=== PATIENT | female | born 1935 | race Caucasian/White ===

== ENCOUNTER → 2016-04-01 | Outpatient (CLI) | payer MEDICARE, BC ==
[~2016-04-01] MED LIST: AUGMENTIN 875-1 EACH PO; B12 INJ.,1000 MCG/M IM; CEFTRIAXONE 1 GM1 GM IV; CENTRUM SILVER1 EAC2 PO; DULCOLAX 5MG TAB5 MG PO; KEFLEX 500MG.500 MG PO; LISINOPRIL 20MG20 MG PO; LORTAB 5/500 501 TAB PO; METOPROLOL25 MG PO; NORVASC 10MG. T10 MG PO; PRILOSEC20 M1 PO; TAB-A-VITE1 TA1 PO; TYLENOL WITH CO1 TA1 PO; ZITHROMAX Z-PA250 M2 PO
--- NOTE | 2016-04-01 12:53 | RADIOLOGY REPORT PS360 ---
HIP RT 2-3V W/PELVIS IF PERFOR HISTORY: Follow-up fracture STATUS POST HIP SURGERY ORDERING PHYSICIAN: Mikael Giraldo MD PATIENT AGE: 80 years COMPARISON: 01/28/2016 FINDINGS: Status post right hip pinning for femoral neck fracture with minimal impaction of fracture fragments in good alignment. Fracture line appears somewhat less apparent. IMPRESSION: Healing right femoral neck fracture status post ORIF
== END ==
LOC: EDSTATUS 09:06 → RAD 10:33
DX: Z96.89 Presence of other specified functional implants (principal)

== ENCOUNTER 2016-04-08 11:30 | Inpatient (IN) | payer MEDICARE, BC ==
[~2016-04-08] VITALS: Ht 157.5 cm; Wt 49.1 kg
[~2016-04-08 11:30] MED LIST changes: -CEFTRIAXONE 1 GM1 GM IV; -ZITHROMAX Z-PA250 M2 PO
[2016-04-08 11:31] VITALS: BP 88/51
--- NOTE | 2016-04-08 11:52 | Emergency Room Report ---
History of Present Illness Time Seen by MD Gray Presenting Problem in Triage Pt arrived:Wheelchair Presenting Problem:PATIENT STATES THAT SHE FELL IN THE BATHROOM Onset of symptoms date/time:/ or onset unknown for:MEDICAL HX UNKNOWN Treatment Prior to Arrival: COFOUNDER Provided by: Sepsis Risk Assessment: Temp: 98.1 B/P: 88/51 MAP: 63 Pulse: 83 Resp: 18 Recent fever? N Clinical Suspician of Infection? N Mental Status: 1 - Regular (Normal Baseline) Sepsis Risk:Low Sepsis Risk Have you (or family members/close friends) recently traveled outside the [place]? N If Yes, where/when: Have you had exposure to infectious disease within the past month? N TB? Other? Specify: Source patient, RN notes reviewed, family Exam Limitations no limitations Comment This is an 80-year-old female with a past medical history significant for hypertension, UTI, CVA with residual left-sided weakness who presents to the emergency department for a fall this morning and subsequent LEFT hip pain. She has had ORIF of the LEFT hip in 2008 in the RIGHT hip in 2016. She states that she was coming out of the bathroom this morning when she fell. She reports that her LEFT leg is always weak and that's why she fell. She denies any associated dizziness, chest pain, shortness of air. No recent fevers. She had one episode of vomiting today after the fall. She denies any abdominal pain, dysuria. She feels like she has been in her baseline health. She does not have a headache and denies any blood thinners. She fell onto her LEFT hip. ALLERGIES Coded Allergies: No Known Allergies (11/13/15) Home Medications Active Scripts Bisacodyl (Dulcolax 5MG Tab) 5 MG PO DAILY PRN CONSTIPATION #30 TAB Ref 2 Prov: 10/01/14 ACETAMINOPHEN WITH CODEINE (Tylenol With Codeine #3 Tablet) 1 TAB PO Q6HP PRN BREAKTHROUGH MODERATE PAIN #30 TAB Prov: 11/15/15 Reported Medications LISINOPRIL (Lisinopril) 20 MG PO DAILY Folic Acid/Multivit-Min/Lutein (Centrum Silver Chewable Tablet) 1 EACH PO DAILY AMLODIPINE BESYLATE (Norvasc) 10 MG PO DAILY Metoprolol Tartrate (Metoprolol) 25 MG PO DAILY Vitamin B12 (Cyanocobalamin Injection) 1,000 MCG IM MONTHLY History Medical History General CAD? No Angina: No [place]: No Hypertension? Yes Hyperlipidemia? No CHF? No DVT? No PE? No COPD? No Asthma? No Anemia? No GERD? No Gastric ulcers? No GI Bleed? No Hernia? No Thyroid Problems? No Hypothyroidism? No CVA? Yes Seizures? No Diabetes? No Renal Insuffiency? No End Stage Renal Disease? No UTI? Yes Stones? No BPH? No GB Disease: No Nephritic Syndrome? No Asplenia? No Hepatitis? No Sickle Cell Disease? No Arthritis? Yes Migraines? No Cataracts? No Glaucoma? No MRSA? No HIV? No TB? No Anxiety? No Depression? No Cancer? No More? No Immunization Hx Ped.Immunizations UTD Yes DT/Tetanus < 1 Year Ago Flu [id number] Flu Season Pneumonia Received In Past Surgical Hx Previous Surgery?Y HYSTERECTOMY RECTAL POLYPS BRAIN LEFT HIP REPAIR Family History Family Hx Diabetes Yes CAD Yes Hypertension Yes Hyperlipidemia No Cancer Yes TB No Social History Smoking Hx Smoker: Never Smoker Tobacco: No Packs/day N/A Are you/the child exposed to second-hand smoke: Yes Alcohol Alcohol: No Review of Systems All Other Systems Reviewed and Negative Physical Exam Vital Signs Vital Signs Date Time Temp Pulse Resp B/P Pulse O2 O2 Flow FiO2 Ox Delivery Rate 04/08 1336 98.1 68 20 124/56 95 04/08 1258 68 20 113/60 95 2 04/08 1153 89 04/08 1131 98.1 83 18 88/51 90 General Appearance normal appearance, chronically ill-appearing Ear, Nose, Throat hearing grossly normal, normal pharynx, dry mucous membranes Neck normal inspection, non-tender, supple, full range of motion Respiratory Status Yes: chest symmetrical, non tender chest. No: respiratory distress. Lung Sounds bilateral: normal breath sounds, lungs clear. Cardiovascular normal exam, regular rate/rhythm, no peripheral edema, no gallop, no JVD, no murmur, no rub, normal peripheral pulses Peripheral Pulses Pulses normal Yes Gastrointestinal normal bowel sounds, normal exam, non tender Back normal inspection, no CVA tenderness, no vertebral tenderness Extremities nontender except tenderness over the lateral aspect of the LEFT hip near the greater trochanter. There is no bruising or deformity. Equal leg length. Sensation is intact distally in the LEFT lower extremity with 2+ DP and PT pulses. Neurologic alert, no motor/sensory deficits, oriented x 3 Skin intact, normal color, warm/dry, poor skin turgor Medical Decision Making LABS/Meds/Orders Pt receiving controlled substance in ED? No Results/Orders Laboratory Tests 04/08/16 1251: Urine Color YELLOW, Urine Appearance SL CLOUDY, Urine pH 5.5, Ur Specific [place] >= 1.030, Urine Protein NEGATIVE, Urine Ketones TRACE H, Urine Blood NEGATIVE, Urine Nitrate NEGATIVE, Urine Bilirubin NEGATIVE, Urine Urobilinogen 0.2, Ur Leukocyte Esterase NEGATIVE, Urine WBC OCC, Ur Squamous Epith Cells OCC, Urine Bacteria 1+, Urine Mucus 4+, Urine Glucose NEGATIVE 04/08/16 1245: Lactic Acid 2.0 04/08/16 1140: Sodium 143, Potassium 4.2, Chloride 106, Carbon Dioxide 25, BUN 25 H, Creatinine 0.9, Estimated Creat Clear 42 L, Estimated GFR (MDRD) 60, Glucose 149 H, Calcium 9.0, Total Bilirubin 0.5, AST 17, ALT 30, Alkaline Phosphatase 145 H, Total Protein 7.6, Albumin 3.5, Globulin 4.1 H, Albumin/Globulin Ratio 0.9 L, WBC 20.5 *H, RBC 4.67, Hgb 13.3, Hct 41.2, MCV 88.2, RDW 14.4, Plt Count 260, MPV 8.9, Gran % 91.4 H, Gran # 18.7 H, Total Counted 100, Lymphocytes % 5.1 L, Monocytes % 3.3, Eosinophils % 0.1, Basophils % 0.2, Neutrophils 91 H, Lymphocytes (Manual) 4 L, Lymphocytes # 1.0, Monocytes (Manual) 5, Monocytes # 0.7, Eosinophils # 0.0, Basophils # 0.0, Platelet Estimate NORMAL, PUBS MCHC 31.9, MCH 28.1 Current Medication Orders Sig/Javon Start time Last Medication Dose Route Stop Time Status Admin Ceftriaxone Sodium 0 .STK-MED ONE 04/08 1300 DC IV Sodium Chloride 50 ML .STK-MED ONE 04/08 1259 DC IV Ceftriaxone Sodium 1 GM ONCE ONE 04/08 1215 DC 04/08 Sodium Chloride 50 ML IV 04/08 1244 1302 Sodium Chloride 10 ML PRN PRN 04/08 1145 AC IV 04/09 1144 Sodium Chloride 1,000 ML .Q1H1M 04/08 1145 DC 04/08 IV 04/08 1245 1147 Sodium Chloride 10 ML PRN PRN 04/08 1145 AC IV 04/09 1144 Sodium Chloride 1,000 ML .STK-MED ONE 04/08 1145 DC IV Orders Procedure Date/time Status DIET-NOTHING BY MOUTH 04/08 D Active Decision to admit 04/08 1333 Active URINARY CATHETER INSERT 04/08 1257 Active CULTURE, BLOOD 04/[address] HEAD REQ 04/08 1153 Complete OXYGEN PER NURSE 04/08 1152 Active URINALYSIS/COMPLETE 04/08 1147 Complete LACTIC ACID 04/08 1147 Complete CBC WITH AUTO DIFF 04/08 1147 Complete CHEM 12 PROFILE 04/08 1147 Complete IV SALINE LOCK 04/08 1144 Active DIFFERENTIAL-WBC 04/08 1140 Complete XRAY/CT/US XRAY/CT/US XRAY chest, hip, pelvis, x-ray of the pelvis and LEFT hip reveals no acute fracture or dislocation. Chest x-ray shows on the LEFT is difficult to interpret given positioning of the heart. There is no focal consolidation. CT head CT interpretation by reviewed by me, discussed w/radiologist (no acute intracranial process) Departure Departure Disposition Still a Patient Clinical Impression Primary Impression: Community acquired pneumonia Secondary Impressions: Fall Qualifiers: Encounter type: initial encounter Qualified Code: W19.XXXA - Unspecified fall, initial encounter Condition STABLE Referrals Dylan Persaud (Family) ED Critical Care Critical Care No Comments Patient with fall onto the LEFT hip which sounds mechanical according to the patient. Her x-rays of the pelvis and hip do not reveal any acute fracture scan of the head is benign as well. She does have a white blood cell count 20,000, no urinary tract infection. Though initially patient claimed to be in her baseline health, she later tells me on reevaluation that she has chronic sinus drainage and cough but states that she has been this way for nearly a year. She denies any chest pain. Her oxygen saturations are 91-92 percent on room air and I wonder for fall this morning might have been related to not only her LEFT leg weakness which is baseline, but also to an episode of hypoxia. I will treat her for presumed community-acquired pneumonia with Rocephin and admission to the hospital. Low suspicion at this time for meningitis/LOSS PREVENTION GUARD infection. Blood cultures are sent. I discussed his case with Dr. Montes. at [phone]
[2016-04-08 12:07] LABS: LYMPH % 5.1 % (10-50.0)
[2016-04-08 12:10] LABS: HEMOGLOBIN 13.3 g/dL (12.2-16.2)
[2016-04-08 12:30] LABS: NEUTROPHILS 91 % (42-76)
--- NOTE | 2016-04-08 12:49 | RADIOLOGY REPORT PS360 ---
CT HEAD W/O CONTRAST HISTORY: Headache following injury PT FELL ORDERING PHYSICIAN: Rafa Huffman MD PATIENT AGE: 80 years COMPARISON: 07/11/2010 TECHNIQUE: Axial images obtained without contrast. Brain and bone windows reviewed. FINDINGS: No midline shift, mass effect, intracranial hemorrhage, hydrocephalus, or extra-axial fluid collection is evident. Post craniotomy changes are present in the left suboccipital region with encephalomalacic change of the left cerebellum. Periventricular and subcortical ischemic gliotic changes are noted. No acute intracranial hemorrhage. IMPRESSION: 1. No change with no acute finding. 2. Prior left suboccipital craniotomy with encephalomalacic change.
[2016-04-08 12:59] LABS: URINE BILIRUBIN - DIPSTICK NEGATIVE (NEG); URINE BLOOD NEGATIVE (NEG)
[2016-04-08 13:09] LABS: URINE SQUAMOUS CELLS OCC #/hpf (0-5)
--- NOTE | 2016-04-08 13:13 | RADIOLOGY REPORT PS360 ---
CHEST-AP VIEW ONLY HISTORY: hypotension ORDERING PHYSICIAN: Rafa Huffman MD PATIENT AGE: 80 years COMPARISON: 11/12/2015 FINDINGS: Mild cardiomegaly without failure. Chronic blunting of the left CP angle adjacent to the heart. Chronic changes right midlung. No lobar consolidation or collapse. No acute bony anomalies. IMPRESSION: No change from 11/12/2015 with no acute finding
--- NOTE | 2016-04-08 13:14 | RADIOLOGY REPORT PS360 ---
HIP LT 2-3V W/PELVIS IF PERFOR HISTORY: Pain following injury FALL ORDERING PHYSICIAN: Rafa Huffman MD PATIENT AGE: 80 years COMPARISON: 04/01/2016 FINDINGS: Status post right hip pain with stable her neck fracture in good alignment. Gamma now with long intramedullary juanjo present on the left with old intertrochanteric fracture. Old fracture line is noted along the lesser trochanter and is chronic. No acute fracture or dislocation is evident. IMPRESSION: Prior ORIF both hips with no acute finding
[2016-04-08 14:30] VITALS: BP 135/80
[2016-04-08 14:37] VITALS: BP 135/80
[2016-04-08 16:02] VITALS: BP 138/87
--- NOTE | 2016-04-08 16:02 | HISTORY AND PHYSICAL REPORT ---
Demographics: Admit date: 04/08/16 Chief complaint: Fall, weakness PRIMARY DIAGNOSIS: PNEUMONIA Allergies: Coded Allergies: No Known Allergies (11/13/15) History of present illness: History of present illness: 80 year old female with a history of CVA with residual left sided weakness, recurrent falls with ORIF to bilateral hips and HTN presented to the ED after a fall at home. She reports increase in weakness over the last week. Denies dizziness prior to the fall. Grandson reports chronic sinusitis with mild dry cough this weak. No fevers. She further reports left hand and left leg discomfort since fall. In the ED, she was found to have leukocytosis with WBC 20.5. CXR with no acute pathology, although this may be related to some dehydration. UA revealed cloudy urine with + ketones. CT head and left hip films were negative for acute pathology. Patient admitted to acute care for IV antibiotics and further evaluation. Past medical history: Family HX Diabetes Yes CAD Yes Hypertension Yes Hyperlipidemia No Cancer Yes TB No Immunization HX Ped.Immunizations UTD Yes DT/Tetanus < 1 Year Ago Flu Refused Pneumonia Received In Past TB Test in last year No General CAD? No Angina: No [place]: No Hypertension? Yes Hyperlipidemia? No CHF? No DVT? No PE? No COPD? No Asthma? No Anemia? No GERD? No Gastric ulcers? No GI Bleed? No Hernia? No Thyroid Problems? No Hypothyroidism? No CVA? Yes Seizures? No Diabetes? No Renal Insuffiency? No UTI? Yes Stones? No BPH? No GB Disease: No Nephritic Syndrome? No Asplenia? No Hepatitis? No Sickle Cell Disease? No Arthritis? Yes Migraines? No Cataracts? No Glaucoma? No MRSA? No HIV? No TB? No Anxiety? No Depression? No Cancer? No More? No Past Surgical HX Previous Surgery?Y HYSTERECTOMY RECTAL POLYPS BRAIN LEFT HIP REPAIR Current home meds: Reported Medications LISINOPRIL (Lisinopril) 20 MG PO DAILY Folic Acid/Multivit-Min/Lutein (Centrum Silver Chewable Tablet) 1 EACH PO DAILY AMLODIPINE BESYLATE (Norvasc) 10 MG PO DAILY Metoprolol Tartrate (Metoprolol) 25 MG PO DAILY Social Hx: Smoking HX Tobacco No Packs/day N/A Are you/the child exposed to second-hand smoke: Yes Alcohol Alcohol: No Hx of Drug Use Drug Use? No Patient's support system is good Review of systems: Constitutional weakness. No: chills, malaise. Eyes No: no symptoms reported. Ears, Nose, Mouth, Throat No ear pain, nose discharge (clear), nose congestion, No throat pain Respiratory cough. No: orthopnea, shortness of breath, SOB at rest, stridor, wheezing. Cardiovascular No no symptoms reported Gastrointestinal/Abdominal No no symptoms reported Genitourinary No: no symptoms reported. Musculoskeletal see HPI. Skin No: no symptoms reported. Neurological Yes: weakness. No: headache, numbness, tingling, tremors. Psychiatric No: no symptoms reported. Exam: Lab data for last 24 hours: Laboratory Tests 04/08/16 1251: Urine Color YELLOW, Urine Appearance SL CLOUDY, Urine pH 5.5, Ur Specific [place] >= 1.030, Urine Protein NEGATIVE, Urine Ketones TRACE H, Urine Blood NEGATIVE, Urine Nitrate NEGATIVE, Urine Bilirubin NEGATIVE, Urine Urobilinogen 0.2, Ur Leukocyte Esterase NEGATIVE, Urine WBC OCC, Ur Squamous Epith Cells OCC, Urine Bacteria 1+, Urine Mucus 4+, Urine Glucose NEGATIVE 04/08/16 1245: Lactic Acid 2.0 04/08/16 1140: Sodium 143, Potassium 4.2, Chloride 106, Carbon Dioxide 25, BUN 25 H, Creatinine 0.9, Estimated Creat Clear 42 L, Estimated GFR (MDRD) 60, Glucose 149 H, Calcium 9.0, Total Bilirubin 0.5, AST 17, ALT 30, Alkaline Phosphatase 145 H, Total Protein 7.6, Albumin 3.5, Globulin 4.1 H, Albumin/Globulin Ratio 0.9 L, WBC 20.5 *H, RBC 4.67, Hgb 13.3, Hct 41.2, MCV 88.2, RDW 14.4, Plt Count 260, MPV 8.9, Gran % 91.4 H, Gran # 18.7 H, Total Counted 100, Lymphocytes % 5.1 L, Monocytes % 3.3, Eosinophils % 0.1, Basophils % 0.2, Neutrophils 91 H, Lymphocytes (Manual) 4 L, Lymphocytes # 1.0, Monocytes (Manual) 5, Monocytes # 0.7, Eosinophils # 0.0, Basophils # 0.0, Platelet Estimate NORMAL, PUBS MCHC 31.9, MCH 28.1 Microbiology 04/08 1640 RANDOM: Urine Culture - ORD 04/08 1245 BLOOD: Anaerobic Blood Culture - RECD 04/08 1245 BLOOD: Aerobic Blood Culture - RECD 04/08 1245 BLOOD: Anaerobic Blood Culture - RECD 04/08 1245 BLOOD: Aerobic Blood Culture - RECD Admission vital signs: 1ST Vital Signs Result Date Time Pulse Ox 90 04/08 1131 B/P 88/51 04/08 1131 Temp 98.1 04/08 1131 Pulse 83 04/08 1131 Resp 18 04/08 1131 O2 Flow Rate 2 04/08 1258 O2 Delivery OXYGEN 04/08 1430 Exam General appearance: cachetic Eyes: anicteric ENT: dry mucous membranes Neck: non-tender, no carotid bruit, no JVD Cardiovascular: regular rate & rhythm, normal peripheral pulses, no peripheral edema Respiratory: clear to auscultation ABD: non-distended, normal bowel sounds, no rebound, soft, no tenderness Genitourinary: no dysuria, no hematuria Extremities: left sided weakness Musculoskeletal: sensation intact Skin: intact Neuro: alert, normal mood/affect, oriented Plan: Problem List 1. Leukocytosis Assessment/Plan Continue IV antibiotics. Likely related to CAP. Will recheck CXR tomorrow afternoon. Obtain urine and sputum culture if able to produce. Blood culture pending. Will recheck labs in the am 2. Fall Assessment/Plan Will initiate PT/OT eval tomorrow 3. History of CVA (cerebrovascular accident) Assessment/Plan Residual left sided weakness. Plan: see above
[2016-04-08 16:42] LABS: CORONAVIRUS 229E NOT DETECTED (NOT DETECTE); CORONAVIRUS HKU 1 NOT DETECTED (NOT DETECTE); CORONAVIRUS NL63 NOT DETECTED (NOT DETECTE); CORONAVIRUS OC43 NOT DETECTED (NOT DETECTE); RHINOVIRUS/ENTEROVIRUS NOT DETECTED (NOT DETECTE)
[2016-04-08 19:47] VITALS: BP 120/63
[2016-04-08 19:50] VITALS: BP 120/63
[2016-04-09] VITALS (8 sets, daily range): BP systolic 109–138; BP diastolic 61–90
[2016-04-09 06:18] LABS: LYMPH # 1.3 K/mm3 (0.7-4.5); LYMPH % 11.1 % (10-50.0)
[2016-04-09 06:27] LABS: HEMOGLOBIN 10.9 g/dL (12.2-16.2)
--- NOTE | 2016-04-09 07:41 | PHARMACY CLINIC NOTE ---
Patient Demographics Patient Demographics Admission date: 04/08/16 Date: 04/09/16 Time: 0740 Allergies Coded Allergies: No Known Allergies (11/13/15) HEIGHT- FT: 5 IN: 2.00 K.130 VTE General Information Labs: Laboratory Tests 04/09 04/08 0610 1140 Hematology Hgb (12.2 - 16.2 g/dL) 10.9 L 13.3 Hct (37.0 - 47.0 %) 33.3 L 41.2 Plt Count (142 - 424 K/mm3) 194 260 Disclaimer The following section includes nursing documentation that has been pulled in for pharmacy review. Patient's VTE score: 3 Patient's VTE Risk: LOW RISK Clinical trial participant? No VTE prophylaxis [id number] [id number] VTE prophylaxis ordered? Yes Type of prophylaxis/treatment: ICD at 0741
--- NOTE | 2016-04-09 07:54 | RADIOLOGY REPORT PS360 ---
CHEST(2 VIEWS-NOT PORTABLE) HISTORY: cough ORDERING PHYSICIAN: Juan Montes MD PATIENT AGE: 80 years COMPARISON: To 117 FINDINGS: The cardiomediastinal silhouette and pulmonary vascularity are within normal limits. Bilateral atelectatic changes are present in the lower lobes and in the right midlung. These findings are somewhat worse.. Age-indeterminate wedging involves the T12 vertebral body with loss of height anteriorly of greater than 50%. Wedging also present involving T7 and T8 slightly greater at T8 with greater than 50% wedge compressive changes. There is kyphosis of the thoracic spine.. Curvilinear lucency overlies aortic arch. This is of questionable clinical significance and may be related to overlying soft tissue artifact. Follow-up suggested IMPRESSION: 1. Increasing bilateral lower lobe atelectatic change. 2. Age-indeterminate wedge compressive changes T7, T8, and T12 with kyphosis
--- NOTE | 2016-04-09 07:54 | ACUTE CARE PROGRESS NOTE (QUA) ---
Progress Notes Subjective Date 04/09/16 Time 0730 Note Patient is sitting in bed eating breakfast. She reports cough has increased, still no sputum production. Left hand and thigh are aching s/p fall yesterday at home. Overall, reports she feels better. Alert and oriented x3. Rate and rhythm regular, + murmur, pulses 1+, no edema. Scattered rhonchi left > right. Small bruise noted on 4th MCP joint, ROM intact; No bruise or deformity left thigh; abdomen soft, non-tender, normoactive bowel sounds. Patient/family reports: feeling better, weakness Nursing reports: no complaints Objective Findings Last VS-Temp:98.2 B/P:135/79 Pulse:97 Resp:16 SaO2:96 ROOM AIR Last weight lbs:108 oz:5 K.130 Method:Bed Scales Reviewed: medications, vital signs, lab results, radiology report Assessment/Plan Problem List 1. Leukocytosis Assessment/Plan: WBC 11.3, down from 20.5. Rhonchi on exam this morning, indicating most likely related to CAP. Continue zithromax and rocephin. Urine and blood cultures pending. Will obtain sputum if able to produce. PT evaluation for deconditioning and recurrent falls. 2. Fall Assessment/Plan: See above Qualifiers: Encounter type: initial encounter Qualified Code: W19.XXXA - Unspecified fall, initial encounter 3. History of CVA (cerebrovascular accident) Assessment/Plan: Left sided weakness This inpt stay is expected to cross 2 MNs from start of care Yes
[2016-04-10] VITALS (8 sets, daily range): BP systolic 101–142; BP diastolic 63–78
--- NOTE | 2016-04-10 08:18 | ACUTE CARE PROGRESS NOTE (QUA) ---
Progress Notes Subjective Date 04/10/16 Time 0816 Note Overall patient feels somewhat better. Continues to be very weak. Poor participation with physical therapy yesterday because of weakness. Patient is alert, pleasant. Talkative, has some back pain complaints. Anterior lung castelan are clear except for some mild anterior rhonchi., abdomen is soft, no edema noted. Objective Findings Last VS-Temp:98.9 B/P:140/72 Pulse:89 Resp:20 SaO2:94 OXYGEN Last weight lbs:108 oz:5 K.130 Method:Bed Scales Assessment/Plan Problem List 1. Leukocytosis 2. Fall Qualifiers: Encounter type: initial encounter Qualified Code: W19.XXXA - Unspecified fall, initial encounter 3. History of CVA (cerebrovascular accident) Patient condition Improving, Stable, arrange for [facility] transfer. This inpt stay is expected to cross 2 MNs from start of care Yes at 0818
--- NOTE | 2016-04-10 08:18 | ACUTE CARE PROGRESS NOTE (QUA) ---
Progress Notes Subjective Date 04/10/16 Time 0816 Note Overall patient feels somewhat better. Continues to be very weak. Poor participation with physical therapy yesterday because of weakness. Patient is alert, pleasant. Talkative, has some back pain complaints. Anterior lung castelan are clear except for some mild anterior rhonchi., abdomen is soft, no edema noted. Objective Findings Last VS-Temp:98.9 B/P:140/72 Pulse:89 Resp:20 SaO2:94 OXYGEN Last weight lbs:108 oz:5 K.130 Method:Bed Scales Assessment/Plan Problem List 1. Leukocytosis 2. Fall Qualifiers: Encounter type: initial encounter Qualified Code: W19.XXXA - Unspecified fall, initial encounter 3. History of CVA (cerebrovascular accident) Patient condition Improving, Stable, arrange for detention transfer. This inpt stay is expected to cross 2 MNs from start of care Yes at 0818
--- NOTE | 2016-04-10 08:20 | ACUTE CARE PROGRESS NOTE (QUA) ---
Progress Notes Subjective Date 04/10/16 Time 0818 Assessment/Plan Problem List 1. Leukocytosis 2. Fall Qualifiers: Encounter type: initial encounter Qualified Code: W19.XXXA - Unspecified fall, initial encounter 3. History of CVA (cerebrovascular accident) This inpt stay is expected to cross 2 MNs from start of care Yes Antibiotic Stewardship (2) Current Culture Results Microbiology 04/08 1251 RANDOM: Urine Culture - COMP 04/08 1245 BLOOD: Anaerobic Blood Culture - RECD 04/08 1245 BLOOD: Aerobic Blood Culture - RECD Infxn that will respond? Yes Right drug,dose,and route? Yes More targeted antbx? Yes How long atbx needed? 10 at 0820
--- NOTE | 2016-04-10 10:30 | RADIOLOGY REPORT PS360 ---
CHEST PORTABLE-PICC PLACEMENT CLINICAL INDICATION: PICC LINE INSERTION ORDERING PHYSICIAN: Juan Montes MD PATIENT AGE: 80 years COMPARISON: April 09, 2016 FINDINGS: Left upper from a PICC line has been inserted. The tip is not visible but is projected toward the left neck. Atelectatic changes are present in the right mid and lower lung zone and left lower lobe unchanged on the right and slightly improved on the left. Normal heart size. IMPRESSION: PICC line tip is abnormal position in the region of the left neck
--- NOTE | 2016-04-10 13:10 | RADIOLOGY REPORT PS360 ---
FLUORO GUIDE FOR CV ACCESS HISTORY: PICC LINE PLACEMENT UNDER FLUORO ORDERING PHYSICIAN: Juan Montes MD PATIENT AGE: 80 years COMPARISON: None FINDINGS: Chest x-ray showed the PICC line within the region of the left jugular vein. Repositioning was attempted however, the line could never be position beyond midline and was not felt to be in the superior vena cava. Approximate 20 cc [id number] was injected and showed occlusion of the medial aspect of the left brachiocephalic vein with extensive collateral vessels in the left neck and chest. There was a faint visualization of the superior vena cava through collateral vessels. The PICC line was left in place in the region of the subclavian vein. 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 PICC line tip breast in region of the left subclavian vein
[2016-04-11 00:07] VITALS: BP 135/76
[2016-04-11 04:01] VITALS: BP 125/77
[2016-04-11 07:57] VITALS: BP 137/78
--- NOTE | 2016-04-11 08:46 | ACUTE CARE PROGRESS NOTE (QUA) ---
Progress Notes Subjective Date 04/11/16 Time 0845 Note Patient is alert, pleasant, very talkative. Had a good breakfast. Anterior lung castelan have some rhonchi in the RIGHT lower chest, heart rate regular. Abdomen soft, no edema or clubbing. Objective Findings Last VS-Temp:98 B/P:137/78 Pulse:97 Resp:18 SaO2:92 ROOM AIR Last weight lbs:108 oz:5 K.130 Method:Bed Scales Assessment/Plan Problem List 1. Leukocytosis 2. Fall Qualifiers: Encounter type: initial encounter Qualified Code: W19.XXXA - Unspecified fall, initial encounter 3. History of CVA (cerebrovascular accident) Patient condition Improving Plan: initiate discharge plan This inpt stay is expected to cross 2 MNs from start of care Yes Antibiotic Stewardship (2) Infxn that will respond? Yes Right drug,dose,and route? Yes More targeted antbx? Yes at 0846
[2016-04-11] MEDS ORDERED: CEFTRIAXONE 1 GM1 GM IV (08:48)
--- NOTE | 2016-04-11 08:48 | DISCHARGE SUMMARY STANDARD ---
See Addendum Demographics Admit date: 04/08/16 Discharge date: 04/11/16 History of present illness History of present illness 80 year old female with a history of CVA with residual left sided weakness, recurrent falls with ORIF to bilateral hips and HTN presented to the ED after a fall at home. She reports increase in weakness over the last week. Denies dizziness prior to the fall. Lopez reports chronic sinusitis with mild dry cough this weak. No fevers. She further reports left hand and left leg discomfort since fall. In the ED, she was found to have leukocytosis with WBC 20.5. CXR with no acute pathology, although this may be related to some dehydration. UA revealed cloudy urine with + ketones. CT head and left hip films were negative for acute pathology. Patient admitted to acute care for IV antibiotics and further evaluation. Hospital Course Hospital Course: Patient was admitted, placed on IV antibiotics. Follow-up chest x-rays after hydration revealed infiltrate and she was diagnosed with community acquired pneumonia. She had significant leukocytosis and given her falls it was determined she would benefit from physical therapy evaluation and their evaluation revealed she was significantly impaired vis--vis walking and coordination. It was determined she would benefit from skilled care for ongoing PT/OT as well as finishing up IV antibiotics with ceftriaxone. [place] [facility] She'll continue 10 more days of intravenous ceftriaxone 1 g daily. By mouth azithromycin 250 mg for the next 3 days, and her regular medications. Orthopedic pains have been well controlled with plain Tylenol. Other medications will be as noted. Discharge diagnoses Problem List 1. Leukocytosis 2. Fall 3. History of CVA (cerebrovascular accident) 4. Community acquired pneumonia Medications Medications: Discharge meds are as noted. Follow up Follow up in office in: 4 DAYS with: Dylan Persaud at [id number]
[2016-04-11] MEDS ORDERED: ZITHROMAX Z-PA250 M2 PO (08:49)
[2016-04-11 08:56] VITALS: BP 137/78
[2016-04-11 11:49] VITALS: BP 108/62
[2016-04-11 12:20] VITALS: BP 108/62
== END 2016-04-11 12:35 | DRG 194 ==
LOC: ER 11:30 → 2ND 13:41 → ER 13:41 → 2ND 14:07
PROVIDERS: Emergency Medicine; Internal Medicine Adolescent Medicine
DX: J18.9 Pneumonia, unspecified organism (principal); I69.354 Hemiplegia and hemiparesis following cerebral infarction affecting left non-dominant side; I10 Essential (primary) hypertension; Z91.81 History of falling
CPT/HCPCS: C1751; C1769; J0456; Q9967